=== PATIENT | female | born 1965 | race African-American/Black ===

== ENCOUNTER 2020-05-19 21:03 | Emergency (ER) | payer SELFPAY ==
[~2020-05-19] VITALS: Ht 165.1 cm; Wt 87.0 kg
[2020-05-19] MEDS ORDERED: SODIUM CHLORIDE 0.9% 1,000 ML IV ONE (21:30)
[2020-05-19 21:31] VITALS: BP 144/80
[2020-05-19] MEDS ORDERED: NICO-645 TP (22:42)
== END 2020-05-19 22:54 | disposition home or self-care (01) ==
LOC: ER 21:03
DX: F10.129 Alcohol abuse with intoxication, unspecified (principal); Y90.0 Blood alcohol level of less than 20 mg/100 ml; I10 Essential (primary) hypertension; F17.290 Nicotine dependence, other tobacco product, uncomplicated
CPT/HCPCS: 93005; 99283; 99406; J7030; Z7610

== ENCOUNTER 2020-05-23 20:30 | Emergency (ER) | payer SELFPAY ==
[~2020-05-23] VITALS: Ht 167.6 cm; Wt 73.0 kg
[~2020-05-23 20:30] MED LIST: NICO-645 TP
[2020-05-23 23:30] VITALS: BP 110/80
== END 2020-05-24 00:47 | disposition home or self-care (01) ==
LOC: ER 20:30
DX: F10.10 Alcohol abuse, uncomplicated (principal); Z53.21 Procedure and treatment not carried out due to patient leaving prior to being seen by health care provider; Y90.9 Presence of alcohol in blood, level not specified